=== PATIENT | female | born 1980 | race Caucasian/White ===

== ENCOUNTER 2017-05-23 01:40 | Emergency (ER) | payer OTHER ==
[~2017-05-23] VITALS: Ht 172.7 cm; Wt 77.1 kg
[~2017-05-23 01:40] MED LIST: ALBUTEROL0.09 MG/A1 INH
--- NOTE | 2017-05-23 02:00 | ED GI/GU/ABDOMINAL COMPLAINT ---
History of Present Illness General Chief Complaint: Abdominal Pain/Flank Pain Stated Complaint: BIBA "?GALLBLADDER PAIN" Source: patient, old records Exam Limitations: no limitations Vital Signs & Intake/Output Vital Signs & Intake/Output Vital Signs Date Time Temp Pulse Resp B/P B/P Pulse O2 O2 Flow FiO2 Mean Ox Delivery Rate 05/23 0143 98.3 81 18 117/76 100 Room Air Allergies Coded Allergies: MDX - Azithromycin (From ZITHROMAX) (Severe, CHEST PRESSURE/SOB 12/23/14) MDX - Morphine (MORPHINE) (Severe, HALLUCINATIONS 12/23/14) Reconcile Medications Albuterol Sulfate (Albuterol Sulfate Hfa) 0.09 MG/Actuation TRINA 2 PUFF INH Q4- 6 PRN PRN SHORTNESS OF BREATH 90 MCG PER PUFF Triage Note: TRIAGe: PATIENT TO ER REPORTING 08/22 TO [facility] X 6 DAYS "GIVING ME CHEST PAIN, THOUGHT IT WAS GALLBLADDER, THOUGH I COULD SLEEP IT OFF." +NAUSEA/ DIARRHEA, -VOMITTING. DENIES SOB/ URINARY SX. Triage Nurses Notes Reviewed? yes ? N Is pt currently ? No HPI: Patient percent with intermittent right upper quadrant pain for the past 6 days. The pain is worsened after eating. Patient states that after she eats proximally half hour later the pain comes on. The pain usually resolves after hours with negative discontinued. She states that the pain is sometimes burning and sometimes sharp in nature. There is no radiation. There is nausea but no vomiting. No fevers or chills. At its worst the pain is 8 out of 10. Past History Travel History Traveled to [place] past 21 day No Medical History Any Pertinent Medical History? see below for history Neurological: NONE EENT: NONE Cardiovascular: NONE Respiratory: NONE Gastrointestinal: TORN ESOPHAGUS HERNIA REPAIR Hepatic: NONE Renal: NONE Musculoskeletal: NONE Psychiatric: NONE Endocrine: PREDIABETIC Blood Disorders: NONE Cancer(s): NONE RN ANTE PARTUM/Reproductive: NONE Surgical History Surgical History: appendectomy Psychosocial History What is your primary language Liberian Tobacco Use: Never used ETOH Use: occasional use Illicit Drug Use: denies illicit drug use Family History Hx Contributory? No Review of Systems Review of Systems Constitutional: Reports: no symptoms. EENTM: Reports: no symptoms. Respiratory: Reports: no symptoms. Cardiovascular: Reports: no symptoms. GI: Reports: see HPI, abdominal pain, nausea. Genitourinary: Reports: no symptoms. Musculoskeletal: Reports: no symptoms. Skin: Reports: no symptoms. Neurological/Psychological: Reports: no symptoms. Hematologic/Endocrine: Reports: no symptoms. Immunologic/Allergic: Reports: no symptoms. All Other Systems: Reviewed and Negative Physical Exam Physical Exam General Appearance: well developed/nourished, alert, awake, anxious, moderate distress Head: atraumatic, normal appearance Eyes: Bilateral: PERRL, EOMI. Ears, Nose, Throat, Mouth: hearing grossly normal, DRY MUCOSA Neck: normal inspection, supple, full range of motion Respiratory: normal breath sounds, chest non-tender, no respiratory distress, lungs clear Cardiovascular: regular rate/rhythm, normal peripheral pulses Gastrointestinal: normal bowel sounds, soft, guarding, tenderness Back: normal inspection, normal range of motion Extremities: normal range of motion Neurologic/Psych: no motor/sensory deficits, awake, alert, oriented x 3, normal mood/affect Skin: intact, normal color, warm/dry Core Measures ACS in differential dx? No Sepsis Present: No Sepsis Focused Exam Completed? No Progress Differential Diagnosis: biliary colic, cholecystitis, diverticulitis, gastritis, hepatitis, ischemic bowel, inflamm bowel dis, pancreatitis Plan of Care: Orders Procedure Date/time Status LIPASE 05/23 156 Complete HUMAN BETA HCG SCREEN 05/23 156 Complete COMPREHENSIVE METABOLIC PANEL 05/23 156 Complete CBC WITHOUT DIFFERENTIAL 05/23 156 Complete AMYLASE 05/23 156 Complete EKG 05/24 143 Active Laboratory Tests 05/23/17 0212: Anion Gap 15, Estimated GFR > 60, BUN/Creatinine Ratio 18.9, Glucose 93, Calcium 9.9, Total Bilirubin 0.6, AST 13 L, ALT 24, Alkaline Phosphatase 66, Total Protein 7.9, Albumin 4.7, Globulin 3.2, Albumin/Globulin Ratio 1.5, Amylase 47, Lipase 65, Total Beta HCG NEGATIVE, CBC w Diff NO MAN DIFF REQ, RBC 4.29, MCV 82.7, MCH 27.5, MCHC 33.2, RDW 14.0, MPV 8.5, Gran % 57.7, Lymphocytes % 32.3, Monocytes % 8.1, Eosinophils % 1.1, Basophils % 0.8, Absolute Granulocytes 4.0, Absolute Lymphocytes 2.2, Absolute Monocytes 0.6, Absolute Eosinophils 0.1, Absolute Basophils 0.1 Diagnostic Imaging: Viewed by Me: CT Scan. Discussed w/RAD: CT Scan. Radiology Impression: PATIENT: JOYCE REYES PRESENT AGE: 37 PATIENT ACCOUNT NO: [id number] : 80 LOCATION: [facility] ORDERING PHYSICIAN: Marcelo Will MD SERVICE DATE: 05/23/17 EXAM TYPE: CAT - CT ABD & PELVIS W IV CONTRAST EXAMINATION: CT ABDOMEN AND PELVIS WITH CONTRAST CLINICAL INFORMATION: Right upper quadrant pain. COMPARISON: None TECHNIQUE: Multidetector volumetric imaging was performed of the abdomen and pelvis following IV administration of 95 mL of Optiray 320 intravenous contrast. Sagittal and coronal reformatted images were obtained on the technologist's workstation. DLP: 416 mGy-cm FINDINGS: LUNG BASES: The visualized lung bases are unremarkable. LIVER, GALLBLADDER, AND BILIARY TREE: The liver is normal in size, shape, and attenuation. No focal hepatic lesion or biliary ductal dilatation is present. The gallbladder is unremarkable with no evidence of radiopaque gallstones, gallbladder wall thickening, or obvious pericholecystic inflammatory changes. PANCREAS: Unremarkable. SPLEEN: Unremarkable. ADRENAL GLANDS: Unremarkable. KIDNEYS AND URETERS: The kidneys are normal in size, shape, and attenuation. No hydronephrosis, hydroureter, or calculi seen. No perinephric stranding. BLADDER: Unremarkable. GASTROINTESTINAL TRACT: The stomach is decompressed with no gross abnormality. The duodenum is unremarkable. The proximal jejunum is distended and demonstrates fecalization. The remainder of the small bowel is unremarkable. There is no obstruction. There is no colonic wall thickening or inflammatory change. No free air or free fluid. ABDOMINAL WALL: No significant hernia is appreciated. LYMPH NODES: Normal. VASCULAR: Unremarkable. PELVIC VISCERA: The uterus and adnexa are unremarkable. OSSEOUS STRUCTURES: Unremarkable. IMPRESSION: 1. Abnormal appearance of the proximal jejunum which is mildly distended with fecalized material. The remainder of the small bowel is unremarkable, without obstruction. No inflammatory changes. 2. Unremarkable appearance of the gallbladder. DICTATED BY: Santo Gibson MD DATE/TIME DICTATED:05/23/17337 REFINERY OPERATOR COKING:DARWIN DATE/TIME TRANSCRIBED:05/23/17337 CONFIDENTIAL, DO NOT COPY WITHOUT APPROPRIATE AUTHORIZATION. <Electronically signed in Other Vendor System> SIGNED BY: Santo Gibson MD 05/23/17 0347 Initial ED EKG: NSR, no ST T wave changes Comments: NO RELIEF AFTER 2 DOSES OF MORPHNE. WILL GIVE IV TORADOL. PAIN DECREASED POST IV TORADOL Departure Departure Disposition: HOME OR SELF CARE Condition: Stable Clinical Impression Primary Impression: Enteritis Referrals: Patient Has No Primary Care Dr (PCP/Family) Lisandra HOLLINGSWORTH,Saturnino Huang Additional Instructions: FOLLOW UP WITH DR. AVALOS TAKE LEVSIN NEEDED FOR SPASMS RETURN IF SYMPTOMS WORSEN OR FOR ANY CONCERNS Departure Forms: Customer Survey General Discharge Information Prescriptions: Current Visit Scripts Hyoscyamine (Levsin) 1 TAB PO Q4 PRN ABDOMINAL PAIN #20 TAB
[2017-05-23 02:26] LABS: ABSOLUTE BASOPHIL COUNT 0.1 /CUMM (0.0-0.2); ABSOLUTE EOSINOPHIL COUNT 0.1 /CUMM (0.0-0.7); ABSOLUTE LYMPH COUNT 2.2 /CUMM (1.2-3.4); ABSOLUTE MONOCYTE COUNT 0.6 /CUMM (0.10-0.60); BASOPHIL % 0.8 % (0.0-2.0); EOSINOPHIL % 1.1 % (0-5); GRANULOCYTE % 57.7 % (42.2-75.2); HEMATOCRIT 35.5 % (37-47); MEAN CORPUSCULAR HGB 27.5 PG (27.0-31.0); MEAN CORPUSCULAR HGB CONC 33.2 G/DL (33.0-37.0); MEAN CORPUSCULAR VOLUME 82.7 FL (81.0-99.0); MEAN PLATELET VOLUME 8.5 FL (7.4-10.4); PLATELET COUNT 293 /CUMM (130-400); RED BLOOD CELL CT 4.29 /CUMM (4.20-5.40); WHITE BLOOD CELL COUNT 6.9 /CUMM (4.8-10.8)
--- NOTE | 2017-05-23 03:47 | CT SCAN REPORT ---
EXAMINATION: CT ABDOMEN AND PELVIS WITH CONTRAST CLINICAL INFORMATION: Right upper quadrant pain. COMPARISON: None TECHNIQUE: Multidetector volumetric imaging was performed of the abdomen and pelvis following IV administration of 95 mL of Optiray 320 intravenous contrast. Sagittal and coronal reformatted images were obtained on the technologist's workstation. DLP: 416 mGy-cm FINDINGS: LUNG BASES: The visualized lung bases are unremarkable. LIVER, GALLBLADDER, AND BILIARY TREE: The liver is normal in size, shape, and attenuation. No focal hepatic lesion or biliary ductal dilatation is present. The gallbladder is unremarkable with no evidence of radiopaque gallstones, gallbladder wall thickening, or obvious pericholecystic inflammatory changes. PANCREAS: Unremarkable. SPLEEN: Unremarkable. ADRENAL GLANDS: Unremarkable. KIDNEYS AND URETERS: The kidneys are normal in size, shape, and attenuation. No hydronephrosis, hydroureter, or calculi seen. No perinephric stranding. BLADDER: Unremarkable. GASTROINTESTINAL TRACT: The stomach is decompressed with no gross abnormality. The duodenum is unremarkable. The proximal jejunum is distended and demonstrates fecalization. The remainder of the small bowel is unremarkable. There is no obstruction. There is no colonic wall thickening or inflammatory change. No free air or free fluid. ABDOMINAL WALL: No significant hernia is appreciated. LYMPH NODES: Normal. VASCULAR: Unremarkable. PELVIC VISCERA: The uterus and adnexa are unremarkable. OSSEOUS STRUCTURES: Unremarkable. IMPRESSION: 1. Abnormal appearance of the proximal jejunum which is mildly distended with fecalized material. The remainder of the small bowel is unremarkable, without obstruction. No inflammatory changes. 2. Unremarkable appearance of the gallbladder.
[2017-05-23] MEDS ORDERED: LEVSIN0.125 M1 PO ×2 (03:57→04:04)
[2017-05-23 03:58] VITALS: BP 116/76
== END 2017-05-23 04:07 ==
LOC: ERH 01:40
PROVIDERS: Emergency Medicine
DX: K52.9 Noninfective gastroenteritis and colitis, unspecified (principal)
CPT/HCPCS: 74177; 93005; 93010; 96374; 96375; 96376; J1885; J2405